=== PATIENT | male | born 1955 | race Two or more races ===

== ENCOUNTER 2018-11-28 05:55 | Day surgery (SDC) | payer BC ==
[~2018-11-28] VITALS: Ht 162.6 cm; Wt 79.4 kg
[~2018-11-28 05:55] MED LIST: ASPI-1012 PO; LEVO50TA4 PO; PROP80CA PO; ROSU10TA22 PO
[2018-11-28 06:01] VITALS: BP 135/74
[2018-11-28] MEDS ORDERED: PROPOFOL 10 MG/ML 20ML VIAL IV ONE (06:14)
[2018-11-28] MEDS ORDERED: LIDOCAINE HCL-MPF 2% 5ML VIAL ONE (06:14)
[2018-11-28] MEDS ORDERED: DOXA4TAB2 PO (06:34)
[2018-11-28] MEDS ORDERED: METF-444 PO (06:34)
[2018-11-28] MEDS ORDERED: MIDAZOLAM HCL 1 MG/ML 2ML VIAL ONE (06:35)
[2018-11-28 06:55] VITALS: BP 103/64
[2018-11-28 07:00] VITALS: BP 111/72
[2018-11-28 07:05] VITALS: BP 117/72
[2018-11-28 07:10] VITALS: BP 112/72
[2018-11-28 07:25] VITALS: BP 111/85
--- NOTE | 2018-11-28 07:40 | NUR ---
DR. POTTSG IN TO TALK TO PATIENT AND GO OVER RESULTS, PATIENT VERBALIZED UNDERSTANDING. PATIENT STATES FEELING WELL AND IN NO DISTRESS.
--- NOTE | 2018-11-28 07:52 | NUR ---
PATIENT WAITING FOR HIS RIDE HOME , PATIENT IN NO DISTRESS, STATES FEELING WELL.
--- NOTE | 2018-11-28 07:58 | NUR ---
PT VOIDED X1. PATIENT WAITING FOR RIDE TO TAKE HIM HOME.
--- NOTE | 2018-11-28 08:52 | NUR ---
PATIENT DISCHARGED IN NO DISTRESS OR DISCOMFORT.
== END 2018-11-28 08:53 | disposition home or self-care (01) ==
LOC: ENDO 05:55 → DAH 05:55 → ENDO 08:53
PROVIDERS: ATTEND Internal Medicine
DX: K29.50 Unspecified chronic gastritis without bleeding (principal); K21.0 Gastro-esophageal reflux disease with esophagitis; K26.9 Duodenal ulcer, unspecified as acute or chronic, without hemorrhage or perforation; K30 Functional dyspepsia; E78.5 Hyperlipidemia, unspecified; E11.9 Type 2 diabetes mellitus without complications; R56.9 Unspecified convulsions
CPT/HCPCS: 43239; 88305; A4606; J2250; J2704; J3490

== ENCOUNTER → 2021-06-24 | Outpatient (CLI) | payer OTHER ==
[~2021-06-24] MED LIST changes: +DOXA4TAB2 PO; +METF-444 PO; -PROP80CA PO; +PROP80CA52 PO
== END | disposition home or self-care (01) ==
LOC: RAH 11:33
PROVIDERS: ATTEND Physical Medicine & Rehabilitation
DX: M51.26 Other intervertebral disc displacement, lumbar region (principal); M48.061 Spinal stenosis, lumbar region without neurogenic claudication
CPT/HCPCS: 72148

== ENCOUNTER → 2021-07-07 | Outpatient (CLI) | payer OTHER | END | disposition home or self-care (01) | LOC: RAH 12:04 | PROVIDERS: ATTEND Physical Medicine & Rehabilitation | DX: M47.812 Spondylosis without myelopathy or radiculopathy, cervical region (principal); M48.02 Spinal stenosis, cervical region; R29.898 Other symptoms and signs involving the musculoskeletal system | CPT/HCPCS: 72141 ==

== ENCOUNTER → 2021-08-12 | Outpatient (CLI) | payer OTHER | END | disposition home or self-care (01) | LOC: DAH 09:59 | PROVIDERS: ATTEND Family Medicine | DX: Z01.818 Encounter for other preprocedural examination (principal); R06.02 Shortness of breath | CPT/HCPCS: 71046 ==

== ENCOUNTER → 2021-09-10 | Outpatient (CLI) | payer MEDICARE ==
[~2021-09-10] MED LIST changes: +ALBUTEROL 0.083% 2.5 MG/3 ML INH IH ONE; +FISH1CAP27 PO; +LEVO88TA7 PO; +MULT-1367 PO; +ROSU20TA23 PO; +TAMS-1 PO
== END | disposition home or self-care (01) ==
LOC: RESP 08:05
PROVIDERS: ATTEND Internal Medicine Cardiovascular Disease
DX: R06.02 Shortness of breath (principal); L92.9 Granulomatous disorder of the skin and subcutaneous tissue, unspecified; N20.0 Calculus of kidney
CPT/HCPCS: 71250; 94060

== ENCOUNTER → 2021-10-06 | Outpatient (CLI) | payer MEDICARE ==
[~2021-10-06] MED LIST changes: -ALBUTEROL 0.083% 2.5 MG/3 ML INH IH ONE; -DOXA4TAB2 PO; -LEVO50TA4 PO; -ROSU10TA22 PO
== END | disposition home or self-care (01) ==
LOC: RAH 09:58
PROVIDERS: ATTEND Neurological Surgery
DX: M47.812 Spondylosis without myelopathy or radiculopathy, cervical region (principal); M48.02 Spinal stenosis, cervical region; M25.78 Osteophyte, vertebrae; Z98.1 Arthrodesis status
CPT/HCPCS: 72040

== ENCOUNTER → 2022-01-09 | Outpatient (CLI) | payer MEDICARE | END | disposition home or self-care (01) | LOC: RAH 08:58 | PROVIDERS: ATTEND Internal Medicine Cardiovascular Disease | DX: N20.0 Calculus of kidney (principal); R63.4 Abnormal weight loss; K57.30 Diverticulosis of large intestine without perforation or abscess without bleeding | CPT/HCPCS: 74176 ==